=== PATIENT | female | born 1970 | race Caucasian/White ===

== ENCOUNTER 2019-07-06 08:06 | Emergency (ER) | payer MEDICARE ==
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
[2019-07-06 09:25] LABS: Appearance CLOUDY (CLEAR); Bilirubin NEGATIVE (NEGATIVE); Blood LARGE Ery/ul (0-5); Epithelial Cells FEW /HPF (FEW); Glucose NEGATIVE (NEGATIVE); Ketones NEGATIVE (NEGATIVE); Leukocyte Esterase TRACE (NEGATIVE); Mucus SLIGHT /HPF (NEGATIVE); Nitrite NEGATIVE (NEGATIVE); Protein,Urine Dip 30 (Negative); Specific Gravity 1.025 (1.005-1.025); Urobilinogen NEGATIVE mg/dL (0-1); WBC 26-50 /HPF (0-5)
[2019-07-06 09:26] LABS: Absolute Neutrophil Ct (ANC) 5.94 (1.4-6.9); BASOPHIL % 0.5 % (0.0-0.4); Basophil (Absolute #) 0.04 (0-0.4); Eosinophil % 6.5 % (0.00-5.0); Eosinophil (Absolute #) 0.56 (0-0.5); Hematocrit 28.9 % (35-47); Hemoglobin 9.2 gm/dl (12.0-16.0); Lymphocyte (Absolute #) 1.31 (1.0-4.6); Lymphocytes % 15.3 % (24.0-44.0); Mean Cell Volume 81.9 fl (78-100); Mean Corpuscular Hgb Concent. 31.8 g/dl (32-36); Mean Platelet Volume 11.5 fl (6-9.5); Monocyte (Absolute #) 0.73 (0.0-1.3); Monocytes % 8.5 % (0.0-12.0); Neutrophil % 69.2 % (36.0-66.0); Platelet Count 335 K/mm3 (150-450); Red Blood Count 3.53 M/mm3 (4.1-5.4); Red Cell Distribution Width 18.2 % (11.5-14.0); White Blood Count 8.6 K/mm3 (4.0-10.5)
[2019-07-06 09:30] LABS: RBC >101 /HPF (0-2)
[2019-07-06 09:34] LABS: INR 1.06 (0.8-3.0)
[2019-07-06 09:35] LABS: Amphetamine,Urine NEGATIVE (NEGATIVE); Barbiturate,Urine NEGATIVE (NEGATIVE); Benzodiazepine,Urine POSITIVE (NEGATIVE); Cocaine,Urine NEGATIVE (NEGATIVE); Methadone,Urine NEGATIVE (NEGATIVE); Opiate,Urine POSITIVE (NEGATIVE); PCP,Urine NEGATIVE (NEGATIVE); THC,Urine NEGATIVE (NEGATIVE)
[2019-07-06 09:41] LABS: ALBUMIN 3.7 g/dL (3.5-5.0); ALKALINE PHOSPHATASE 109 U/L (38-126); ANION GAP 13.8 MEQ/L (5-15); BLOOD UREA NITROGEN 10 mg/dL (7-17); CHLORIDE 108 mmol/L (98-107); Calcium 8.6 mg/dL (8.4-10.2); Carbon Dioxide 23 mmol/L (22-30); Creatinine 1 0.52 mg/dL (0.52-1.04); Glucose 96 mg/dL (74-106); Potassium 3.8 mmol/L (3.5-5.1); SGOT/AST 31 U/L (14-36); SGPT/ALT 12 U/L (0-35); SODIUM 141 mmol/L (137-145)
--- NOTE | 2019-07-06 09:47 | XRAY ---
Indication: Dizziness. Frequent falls. Multiple contiguous axial images obtained through the head without contrast. Comparison: May 12, 2015. Stable age-appropriate global atrophy, minimal periventricular degenerative micro-ischemia, and small remote right temporal lobe infarct. No acute intracranial hemorrhage, hydrocephalus, or mass effect. Fourth ventricle is midline. Bony calvarium intact. Visualized paranasal sinuses and mastoid air cells are clear. Impression: Stable nonacute senile brain with small right temporal lobe infarct. CT DI 70.00
[2019-07-06 12:02] VITALS: BP 125/64; PULSE 95; O2SAT 96
== END 2019-07-06 12:00 | disposition home or self-care (01) ==
LOC: ED 08:06
DX: D64.9 Anemia, unspecified (principal); N39.0 Urinary tract infection, site not specified; R40.0 Somnolence; Z87.820 Personal history of traumatic brain injury; Z79.899 Other long term (current) drug therapy; Z79.891 Long term (current) use of opiate analgesic
CPT/HCPCS: 36000; 36415; 70450; 80053; 80307; 81001; 84484; 85025; 85610; 87086; 93005; 93041; 94760; 99284

== ENCOUNTER 2020-06-15 13:54 | Day surgery (SDC) | payer MEDICARE ==
[~2020-06-15 13:54] MED LIST: DIPRIVAN 200 MG/20 ML IV ONE; Ketamine HCl 50 MG/ML ONE
[2020-06-15] MEDS ORDERED: LIDOCAINE HCL 2% 100 MG/5 ML IJ ONE (13:55)
[2020-06-15] MEDS ORDERED: Depo-Medrol 40 MG/ML IM ONE (13:55)
[2020-06-15] MEDS ORDERED: Lactated Ringers 1,000 ML IV ONE (15:53)
--- NOTE | 2020-06-15 16:22 | XRAY ---
Indication: Bilateral L4-S1 MBB. Intraoperative fluoroscopy was provided for 7 seconds. Single digital spot image submitted for interpretation demonstrates posterior needle tips projecting over the expected left and right L4-S1 nerve roots. Correlate with intraoperative findings/report.
--- NOTE | 2020-06-15 16:38 | XRAY ---
7 seconds fluoroscopy time in surgery for bilateral L4-S1 MBB.
== END 2020-06-15 15:55 | disposition home or self-care (01) ==
LOC: SDC-PAIN 13:54
PROVIDERS: ATTEND Psychiatry & Neurology Pain Medicine
DX: M47.816 Spondylosis without myelopathy or radiculopathy, lumbar region (principal); F41.8 Other specified anxiety disorders; Z87.820 Personal history of traumatic brain injury; Z79.899 Other long term (current) drug therapy
CPT/HCPCS: 72020; 77002; 84703; J1030; J2704

== ENCOUNTER 2020-09-14 14:25 | Day surgery (SDC) | payer MEDICARE ==
[2020-09-14] MEDS ORDERED: BUPIVACAINE 0.5% VIAL IJ ONE (14:26)
[2020-09-14] MEDS ORDERED: Depo-Medrol 40 MG/ML IM ONE (14:26)
[2020-09-14] MEDS ORDERED: DIPRIVAN 200 MG/20 ML IV ONE (15:53)
[2020-09-14] MEDS ORDERED: Ketamine HCl 50 MG/ML ONE (15:53)
[2020-09-14] MEDS ORDERED: Lactated Ringers 1,000 ML IV ONE (16:07)
--- NOTE | 2020-09-14 16:53 | XRAY ---
Indication: Bilateral L4-S1 MBB. Intraoperative fluoroscopy was provided for 11 seconds. Single digital spot image submitted for interpretation demonstrates posterior needle tips projecting over the expected left and right L4-S1 nerve roots. Correlate with intraoperative findings/report.
--- NOTE | 2020-09-14 16:58 | XRAY ---
11 seconds fluoroscopy time in surgery for bilateral L4-S1 MBB.
== END 2020-09-14 16:17 | disposition home or self-care (01) ==
LOC: SDC-PAIN 14:25
PROVIDERS: ATTEND Psychiatry & Neurology Pain Medicine
DX: M47.816 Spondylosis without myelopathy or radiculopathy, lumbar region (principal); Z79.899 Other long term (current) drug therapy; Z87.820 Personal history of traumatic brain injury; F41.9 Anxiety disorder, unspecified; G43.909 Migraine, unspecified, not intractable, without status migrainosus
CPT/HCPCS: 64493; 64494; 72020; 77002; 84703; J1030; J2704

== ENCOUNTER 2020-10-26 08:01 | Day surgery (SDC) | payer MEDICARE ==
[2020-10-26] MEDS ORDERED: BUPIVACAINE 0.5% VIAL IJ ONE (08:02)
[2020-10-26] MEDS ORDERED: Xylocaine 1% Vial 30 ML PF IJ ONE (08:02)
[2020-10-26] MEDS ORDERED: Depo-Medrol 40 MG/ML IM ONE (08:02)
[2020-10-26] MEDS ORDERED: DIPRIVAN 200 MG/20 ML IV ONE (08:35)
[2020-10-26] MEDS ORDERED: Ketamine HCl 50 MG/ML ONE (08:37)
--- NOTE | 2020-10-26 11:31 | XRAY ---
Indication: Left L4-S1 RFA. Intraoperative fluoroscopy was provided for 29 seconds. 3 digital spot images submitted for interpretation demonstrates posterior needle tips projecting over the expected left L4-S1 nerve roots. Correlate with intraoperative findings/report.
--- NOTE | 2020-10-26 11:43 | XRAY ---
29 seconds of fluoroscopy was used in surgery for a left L4-L5 and L5-S1 RFA.
[2020-10-26] MEDS ORDERED: Lactated Ringers 1,000 ML IV ONE (15:52)
== END 2020-10-26 09:50 | disposition home or self-care (01) ==
LOC: SDC-PAIN 08:01
PROVIDERS: ATTEND Psychiatry & Neurology Pain Medicine
DX: M47.817 Spondylosis without myelopathy or radiculopathy, lumbosacral region (principal); F41.9 Anxiety disorder, unspecified; Z86.73 Personal history of transient ischemic attack (TIA), and cerebral infarction without residual deficits; Z79.899 Other long term (current) drug therapy
CPT/HCPCS: 64635; 64636; 72100; 77002; 84703; J1030; J2001; J2704

== ENCOUNTER 2020-11-02 10:36 | Day surgery (SDC) | payer MEDICARE ==
[2020-11-02] MEDS ORDERED: Xylocaine 1% Vial 30 ML PF IJ ONE (10:37)
[2020-11-02] MEDS ORDERED: BUPIVACAINE 0.5% VIAL IJ ONE (10:37)
[2020-11-02] MEDS ORDERED: Depo-Medrol 40 MG/ML IM ONE (10:37)
[2020-11-02] MEDS ORDERED: Ketamine HCl 50 MG/ML ONE (12:54)
[2020-11-02] MEDS ORDERED: DIPRIVAN 200 MG/20 ML IV ONE ×2 (12:54→13:10)
--- NOTE | 2020-11-02 14:19 | XRAY ---
Indication: Right L4-S1 RFA. Intraoperative fluoroscopy was provided for 47 seconds. 3 digital spot images submitted for interpretation demonstrates posterior needle tips projecting over the expected right L4-S1 nerve roots. Correlate with intraoperative findings/report.
--- NOTE | 2020-11-02 14:21 | XRAY ---
47 seconds fluoroscopy time in surgery for right L4-S1 RFA.
[2020-11-02] MEDS ORDERED: Lactated Ringers 1,000 ML IV ONE (14:38)
== END 2020-11-02 13:33 | disposition home or self-care (01) ==
LOC: SDC-PAIN 10:36
PROVIDERS: ATTEND Psychiatry & Neurology Pain Medicine
DX: M47.817 Spondylosis without myelopathy or radiculopathy, lumbosacral region (principal); Z87.820 Personal history of traumatic brain injury; F41.8 Other specified anxiety disorders; Z79.899 Other long term (current) drug therapy
CPT/HCPCS: 64635; 64636; 72100; 77002; 84703; J1030; J2001; J2704